=== PATIENT | male | born 1985 | race Two or more races ===

== ENCOUNTER 2023-01-18 20:09 | Emergency (ER) | payer MEDICAID, OTHER ==
[~2023-01-18] VITALS: Ht 167.6 cm; Wt 81.6 kg
[2023-01-18 21:02] VITALS: BP 124/76
[2023-01-18] MEDS ORDERED: IBUPROFEN 400 MG TABLET ONE (21:26)
[2023-01-18] MEDS ORDERED: IBUPROFEN 400 MG TABLET PO ONE (21:30)
== END 2023-01-18 21:29 | disposition home or self-care (01) ==
LOC: ER 20:11
DX: M25.562 Pain in left knee (principal); G89.29 Other chronic pain